=== PATIENT | female | born 1970 | race Caucasian/White ===

== ENCOUNTER → 2016-04-16 | Outpatient (CLI) | payer BC ==
[~2016-04-16] MED LIST: ALBU8.5H4 IH; AMOX-355 PO; AZIT500T PO; BENZ-24 PO; CITA20TA12 PO; FLUT16SP NS; HYDR-3702 PO; IBUP-792 PO; NAPR550T PO; OMEP20CA6 PO; OSLT75C PO
[2016-04-16 11:16] VITALS: BP 147/84
--- NOTE | 2016-04-16 11:16 | Urgent Care T Sheet Gen (E) ---
Intake General Temperature (Fahrenheit): 98.0 Pulse: 91 Blood Pressure Systolic: 147 Blood Pressure Diastolic: 84 Respirations: 22 SPO2: 98 Chief Complaint: UC Ear/Nose/Throat Complaint Description of Symptoms Complains of cough congestion and sinus headache x several days. No high fevers , no h/o asthma. she is a smoker- no hemoptysis but thick green phlegm noted, no chest pain had to cut back on smoking though. sinus pressure and headaches mainly Source: Patient History of Present Illness Onset & Duration: Weeks Associated Symptoms: Cough, Nasal congestion, Sinus congestion Allergies: Coded Allergies: No Known Drug Allergies (Unverified , 05/26/12) Home Meds Active Scripts Albuterol Sulfate (Albuterol Sulfate Hfa)8.5 Gm Hfa.aer.ad2 Puff IH QID PRN DYSPNEA #1 INHALER Prov:HEMANT LEONARD MD 05/10/14 Azithromycin (Zithromax)500 Mg [id number] Mg PO DAILY #7 TAB Prov:HEMANT LEONARD MD 05/10/14 Reported Medications Omeprazole (Prilosec)20 Mg Capsule.dr20 Mg PO DAILY 05/26/12 Citalopram Hydrobromide (Celexa)20 Mg [id number] Mg PO DAILY 05/26/12 Respiratory Constitutional Symptoms: Fever EENTM: Ear pain Nose Congestion Throat pain Respiratory: Cough Cardiovascular: No symptoms reported Gastrointestinal/Abdominal: No symptoms reported Genitourinary: No symptoms reported All Other Systems Reviewed Remaining Systems: All other systems reviewed with negative findings Past Hiqaybi-Otjiux-Pyookz Hx Patient's Social History Alcohol Use: Denies Use Recreational Drug Use: Denies Use Infectious Disease Exposure: No Recent foreign travel: No Surgeries/Hospitalizations Hospitalization/Surgery Hx: CSECTION, COLITIS, GALLBALDDER, HYSTERECTOMY Respiratory Respiratory History: None Cardiovascular Cardiovascular History: None Neuro/Muscular Neuro/Muscular History: None Reproductive System Sexually Transmitted Diseases: No Genitouinary Genitourinary History: Dribbling Comment: incont with coughing Gastrointestinal GI/Endocrine History: Ulcer, GERD Comment: H PYLORI HX Diabetes Diabetes: No HEENT Impaired Vision: Contacts Hearing Impaired: None Integumentary Integumentary History: None Cancer History of Cancer?: No Psychosocial Behavior Disorders: None Blood Transfusions Hx of Blood transfusions: No Physical Exam Physical Exam General Appearance: WD/WN No apparent distress Eyes, Ears, Nose, Throat Ex: TM abnormal (R) (dull fluid) TM abnormal (L) ( dull fluid) Pharyngeal erythema (moderate with drainage) Other (nares erythematous with dc) Neck Exam: Full range of motion Supple Normal inspectionNo Lymphadenopathy Respiratory Exam: Lungs clear Normal breath sounds No respiratory distress No accessory muscles usedNo Accessory muscle use, No Wheezes Cardiovascular Exam: Regular rate, rhythm No murmur Skin Exam: Normal color Warm/dry/intact No rashes Neurologic/Psychiatric Exam: Oriented times 4 CN's II-X nml Departure Urgent Care Impression Chief Complaint: Ear/Nose/Throat Complaint Impression: Primary Impression: Upper respiratory infection Qualified Code: J06.9 - Acute upper respiratory infection, unspecified Departure Disposition: HOME OR SELF-CARE Condition: Stable Referrals: JARVIS WIN MD (PCP) Additional Instructions: Long talk with her stop smoking rest hydrate change tooth brush in 48 hours f/u PCP next week - may need CXR and oral steroids if not improved she agrees to plan of care Tylenol for pain or fever Scripts Fluticasone Propionate 16 Gm [place].susp16 Gm NS DAILY #1 BTL 2 sprays each nare daily Prov:BRIANNA BROWN APRN () 04/16/16 Amoxicillin/Clavulanate Potassium (Augmentin 500mg/125mg)1 Each Tablet1 Each PO BID Infection #20 TAB Ref 0 Prov:BRIANNA BROWN APRN () 04/16/16 End of report . BRIANNA BROWN APRN () Apr 16, 2016 11:16
== END ==
LOC: MHUC 11:10
PROVIDERS: ATTEND Nurse Practitioner
DX: J06.9 Acute upper respiratory infection, unspecified (principal)
CPT/HCPCS: 99213